=== PATIENT | female | born 1945 | race Caucasian/White ===

== ENCOUNTER 2016-08-07 12:38 | Emergency (ER) | payer OTHER ==
[2016-08-07 12:46] VITALS: BMI 34.3
--- NOTE | 2016-08-07 12:57 | DR.GENAD ---
HPI - PCP Primary Care Physician: MARIO - Complaint/Symptoms Chief Complaint Doctors Comments: For the past two weeks has had tingling in the left arm and has been dizzy, both has increased in severity the past few days. Admits to nausea., denies vomiting, headache or diarrhea. Patient states that her eyes would become blurry then she become dizzy she does not know if the room was spinning or if she was spinning. 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, OVERIES REMOVED, BLADDER TACT - Family History History of Family Medical Conditions: Yes Family Medical History: Hypertension - Social History Does any household member use tobacco: No Alcohol Use: None Do you use any recreational Drugs:: No Lives With: Spouse Lives Where: Home - infectious screening In the last 2 months have you had wt loss of >10#?: NO Have you had fever, night sweats or hemotysis?: No Have you traveled outside the country in the last 6 months?: No Isolation: Standard ROS - Review of Systems Eyes: No Symptoms Reported ENTM: No Symptoms Reported Respiratoy: No Symptoms Reported Cardiovascular: No Symptoms Reported, Chest Pain Genitourinary: No Symptoms Reported Neurological: No Symptoms Reported Musculoskeletal: No Symptoms Reported Integumentary: No Symptoms Reported Hematologic/Lymphatic: No Symptoms Reported Endocrine: No Symptoms Reported Psychiatric: No Symptoms Reported All Other Systems: Reviewed and Negative PE - Vital Signs Vitals: Temperature 97.6 F Pulse Rate [Left Radial] 51 Pulse Rate 69 Respiratory Rate 12 Blood Pressure [Right Arm] 126/58 Blood Pressure 140/73 O2 Sat by Pulse Oximetry 96 - General Limitations: No Limitations General Appearance: Alert, In No Apparent Distress - Head Head Exam: Normal Inspection, Atraumatic - Eyes Eye exam: Normal Appearance, PERRL, EOMI - ENT ENT Exam: Normal Exam External Ear Exam: Normal External Inspection TM/Canal Exam: Bilateral Normal Nose Exam: Normal Nose Exam Mouth Exam: Normal Inspection, Trismus - Neck Neck Exam: Normal Inspection - Chest Chest Inspection: Normal Inspection - Respiratory Respiratory Exam: Normal Lung Sounds Bilat Respiratory Exam: Bilateral Clear to Auscultation - Cardiovascular Cardiovascular Exam: Regular Rate, Normal Rhythm - Abdominal Exam Abdominal Exam: Normal Inspection, Normal Bowel Sounds Abdominal Tenderness: negative: RUQ, RLQ, LUQ, LLQ, Epigastrium, Suprapubic, Diffuse, Mild, Moderate, Severe, Other - Extremities Extremities Exam: Normal Inspection, Full ROM, Joint Swelling - Back Back Exam: Normal Inspection, Rashes - Neurologic Neurological Exam: Alert, Oriented X3, CN II-XII Intact - Psychiatric Psychiatric Exam: Normal Affect, Normal Mood - Skin Skin Exam: Warm, Dry Course - Reevaluation 1st: Improved ROR - Labs Reviewed Result Diagrams: 08/07/16 13:23 08/07/16 13:23 Laboratory: WBC 6.7 X10^3/uL (3.6-10.0) 08/07/16 13:23 RBC 5.10 X10^6/uL (3.5-5.4) 08/07/16 13:23 Hgb 15.1 g/dL (12.0-16.0) 08/07/16 13:23 Hct 44.2 % (36.0-47.0) 08/07/16 13:23 MCV 86.7 fL (80.0-100.0) 08/07/16 13:23 MCH 29.6 pg (27.0-34.0) 08/07/16 13:23 MCHC 34.2 g/dL (33.0-35.0) 08/07/16 13:23 RDW 13.3 % (11.6-16.5) 08/07/16 13:23 Plt Count 207 X10^3/uL (150.0-450.0) 08/07/16 13:23 MPV 9.9 fL (7.4-11.0) 08/07/16 13:23 Neut % 62.2 % (42.0-75.0) 08/07/16 13:23 Lymph % 25.5 % (21.0-51.0) 08/07/16 13:23 [place] % 9.2 % (0.0-13.0) 08/07/16 13:23 Eos % 2.1 % (0.9-2.9) 08/07/16 13:23 Baso % 1.0 % (0.2-1.0) 08/07/16 13:23 Neut # 4.2 x10^3/uL (2.2-4.8) 08/07/16 13:23 Lymph # 1.7 X10^3/uL (1.3-2.9) 08/07/16 13:23 [place] # 0.6 x10^3/uL (0.3-0.8) 08/07/16 13:23 Eos # 0.1 x10^3/uL (0.0-0.2) 08/07/16 13:23 Baso # 0.1 X10^3/uL (0.0-0.1) 08/07/16 13:23 Absolute Nucleated RBC 0.1 /100WBC 08/07/16 13:23 Sodium 143 mmol/L (136-145) 08/07/16 13:23 Corrected Sodium TNP 08/07/16 13:23 Potassium 4.0 mmol/L (3.5-5.1) 08/07/16 13:23 Chloride 105 mmol/L (98-107) 08/07/16 13:23 Carbon Dioxide 28.9 mmol/L (21-32) 08/07/16 13:23 BUN 20 mg/dL (7-18) H 08/07/16 13:23 Creatinine 0.72 mg/dL (0.55-1.02) 08/07/16 13:23 Est GFR (MDRD) Af Amer > 60 (>60) 08/07/16 13:23 Est GFR (MDRD) Non-Af > 60 (>60) 08/07/16 13:23 Glucose 100 mg/dL (65-99) H 08/07/16 13:23 Calcium 9.4 mg/dL (8.5-10.1) 08/07/16 13:23 Corrected Calcium TNP 08/07/16 13:23 Phosphorus 4.2 mg/dL (2.6-4.7) 08/07/16 13:23 Magnesium 2.0 mg/dL (1.7-2.9) 08/07/16 13:23 Total Bilirubin 0.60 mg/dL (0.2-1.0) 08/07/16 13:23 AST 25 Units/L (15-37) 08/07/16 13:23 ALT 28 Units/L (12-78) 08/07/16 13:23 Alkaline Phosphatase 101 Units/L (46-116) 08/07/16 13:23 Creatine Kinase 171 Units/L (26-192) 08/07/16 13:23 CK-MB (CK-2) 3.1 ng/mL (0-4.0) 08/07/16 13:23 CK/CKMB % Calc 1.8 % (<4) 08/07/16 13:23 Troponin I < 0.02 ng/mL (0-1.5) 08/07/16 13:23 Total Protein 7.2 g/dL (6.4-8.2) 08/07/16 13:23 Albumin 3.6 g/dL (3.4-5.0) 08/07/16 13:23 Globulin 3.6 g/dL (2.5-4.5) 08/07/16 13:23 Albumin/Globulin Ratio 1.0 Ratio (1.1-2.1) L 08/07/16 13:23 - XRAY XRAY Interpreted by: Radiologist (Chest: No acute cardiopulmonary disease; Cercical Spine 3 Views: No evidence of acute osseous injury to the cervical spine. Straightening of the usual cervical lordosis. this finding may be positional or secondary to muscle spasm. ) - Diagnosis Discharge Problem: Dizziness, Tingling of left upper extremity - Discharge Plan Condition: Stable - Follow ups/Referrals Follow ups/Referrals: Froylan Daugherty [Primary Care Provider] - 3 days - Instructions
[2016-08-07] MEDS ORDERED: ZOFRAN INJ 4 MG VIAL IVP ONE (13:06)
[2016-08-07] MEDS ORDERED: NS 1000 ML 1,000 ML ONE ×2 (13:10→13:26)
[2016-08-07] MEDS ORDERED: ZOFRAN INJ 4 MG VIAL ONE (13:26)
[2016-08-07 13:34] LABS: BASOPHILS # (AUTO) 0.1 X10^3/uL (0.0-0.1); EOSINOPHILS # (AUTO) 0.1 x10^3/uL (0.0-0.2); EOSINOPHILS % (AUTO) 2.1 % (0.9-2.9); HEMATOCRIT 44.2 % (36.0-47.0); HEMOGLOBIN 15.1 g/dL (12.0-16.0); LYMPHOCYTES # (AUTO) 1.7 X10^3/uL (1.3-2.9); LYMPHOCYTES % (AUTO) 25.5 % (21.0-51.0); MEAN CORPUSCULAR HEMOGLOBIN 29.6 pg (27.0-34.0); MEAN CORPUSCULAR HGB CONC 34.2 g/dL (33.0-35.0); MEAN CORPUSCULAR VOLUME 86.7 fL (80.0-100.0); MEAN PLATELET VOLUME 9.9 fL (7.4-11.0); MONOCYTES # (AUTO) 0.6 x10^3/uL (0.3-0.8); MONOCYTES % (AUTO) 9.2 % (0.0-13.0); NEUTROPHILS # (AUTO) 4.2 x10^3/uL (2.2-4.8); NEUTROPHILS % (AUTO) 62.2 % (42.0-75.0); PLATELET COUNT 207 X10^3/uL (150.0-450.0); RED CELL DISTRIBUTION WIDTH 13.3 % (11.6-16.5); WHITE BLOOD COUNT 6.7 X10^3/uL (3.6-10.0)
[2016-08-07 13:54] LABS: BLOOD UREA NITROGEN 20 mg/dL (7-18); CALCIUM 9.4 mg/dL (8.5-10.1); CARBON DIOXIDE 28.9 mmol/L (21-32); CHLORIDE 105 mmol/L (98-107); CREATININE 0.72 mg/dL (0.55-1.02); GLUCOSE 100 mg/dL (65-99); SODIUM 143 mmol/L (136-145); TROPONIN I < 0.02 ng/mL (0-1.5); eGFR BLACK RACES > 60 (>60); eGFR NON BLACK RACES > 60 (>60)
[2016-08-07 13:59] LABS: ALANINE AMINOTRANSFERASE 28 Units/L (12-78); ALBUMIN 3.6 g/dL (3.4-5.0); ALKALINE PHOSPHATASE 101 Units/L (46-116); ASPARTATE AMINO TRANSFERASE 25 Units/L (15-37); CKMB % 1.8 % (<4); CREATINE KINASE 171 Units/L (26-192); CREATINE KINASE MB 3.1 ng/mL (0-4.0); TOTAL PROTEIN 7.2 g/dL (6.4-8.2)
[2016-08-07] MEDS ORDERED: NS 1000 ML 1,000 ML IV SCH (14:00)
--- NOTE | 2016-08-07 14:54 | RAD ---
HISTORY: Dizzy. Study: Portable chest. Comparison: Portable chest dated April 16, 2014. Findings: The trachea is midline. The cardiac silhouette is unremarkable. The lungs are clear without focal infiltrate or effusion. The bony thorax is unremarkable. IMPRESSION: 1. No acute cardiopulmonary disease. Reported By:
[2016-08-07 15:25] VITALS: BP 126/58
--- NOTE | 2016-08-07 16:34 | RAD ---
STUDY: CERVICAL SPINE 3 VIEWS History: Tingling in left arm. Double vision, nausea, left arm pain. Comparison: None. Findings: There is straightening of the usual cervical lordosis. Vertebral body heights and alignment are othe rwise within normal limits. There is no evidence of acute fracture or subluxation. Intervertebral di sk spaces are fairly well preserved. There is no significant prevertebral soft tissue swelling. The lateral masses of C1 and the C1/C2 relationship are normal. The odontoid process is intact. IMPRESSION: 1. No evidence of acute osseous injury to the cervical spine. 2. Straightening of the usual cervical lordosis as described. This finding may be positional or sec ondary to muscle spasm. Clinical correlation is recommended. Reported By:
== END 2016-08-07 17:16 | disposition home or self-care (01) ==
LOC: ER 12:52
DX: R42 Dizziness and giddiness (principal); R20.2 Paresthesia of skin
CPT/HCPCS: 36415; 71010; 72040; 80053; 82550; 82553; 83735; 84100; 84484; 85025; 93005; 96365; 96367; 96374; 99283; A4222; J2405

== ENCOUNTER → 2017-01-28 | Outpatient (CLI) | payer OTHER ==
--- NOTE | 2017-01-29 17:02 | MG ---
Examination: Bilateral screening mammogram. Clinical history: Routine screening. Technique: Digital CC and MLO views of both breasts were obtained. Computer aided detection analysis was performed and used during the interpretation. Comparison: 12/27/2015. Findings: The breasts are composed of scattered fibroglandular densities. Benign-appearing calcifications are a nd vascular calcifications are noted in the breasts bilaterally. No suspicious mass, area of architectural distortion or suspicious cluster of microcalcifications is noted. Impression: 1. No mammographic evidence of malignancy. BI-RADS category 2-benign findings. Recommend routine annual screening mammogram. Diagnostic CAD was utilized and reviewed. * 0 (ZERO) - ASSESSMENT INCOMPLETE; ADDITIONAL IMAGING IS NEEDED. * 0C - ASSESSMENT INCOMPLETE, NEEDS ADDITIONAL IMAGING EVALUATION AND/OR PRIOR MAMMOGRAMS FOR COMPARI SON. * 1/1 (ONE) - NEGATIVE. * 2/II (TWO) - BENIGN FINDINGS. * 3/III (THREE) - PROBABLY BENIGN FINDING; SHORT INTERVAL FOLLOW-UP SUGGESTED. * 4/IV (FOUR) - SUSPICIOUS ABNORMALITY; BIOPSY SHOULD BE CONSIDERED. * 5/V - HIGHLY SUSPICIOUS OF MALIGNANCY; BIOPSY SHOULD BE PERFORMED. * 6/IV - KNOWN BIOPSY PROVEN MALIGNANCY-APPROPRIATE ACTION SHOULD BE TAKEN. A NEGATIVE X-RAY REPORT SHOULD NOT DELAY BIOPSY IF A DOMINANT OR CLINICALLY SUSPICIOUS MASS IS PRESENT; 4 TO 8 PERCENT OF CANCERS ARE NOT IDENTIFIED BY X-RAY. A NEGATIVE REPORT MAY REINFORCE THE CLINICAL IMPRESSION. ADENOSIS AND DENSE BREASTS MAY OBSCURE AN UNDERLYING NEOPLASM. Reported By:
== END ==
LOC: RAD 10:59
PROVIDERS: ATTEND Specialist
DX: Z12.31 Encounter for screening mammogram for malignant neoplasm of breast (principal)
CPT/HCPCS: 77067